=== PATIENT | female | born 1995 | race Caucasian/White ===

== ENCOUNTER 2017-02-03 18:25 | Emergency (ER) | payer MEDICAID ==
[~2017-02-03] VITALS: Ht 157.5 cm; Wt 61.0 kg
[2017-02-03 20:01] VITALS: BP 111/78
== END 2017-02-04 03:50 | disposition left against medical advice (07) ==
LOC: ER 02-04 03:48
DX: H57.9 Unspecified disorder of eye and adnexa (principal); J02.9 Acute pharyngitis, unspecified; Z53.21 Procedure and treatment not carried out due to patient leaving prior to being seen by health care provider